=== PATIENT | female | born 1990 | race Caucasian/White ===

== ENCOUNTER 2019-02-23 17:51 | Emergency (ER) | payer OTHER ==
[~2019-02-23] VITALS: Ht 160 cm; Wt 65.3 kg
[2019-02-23 17:53] VITALS: Ht 160 cm; Wt 65.3 kg
[2019-02-23 19:00] VITALS: BP 131/85
== END 2019-02-23 19:00 | disposition home or self-care (01) ==
LOC: ED 17:51
DX: S09.8XXA Other specified injuries of head, initial encounter (principal); W22.8XXA Striking against or struck by other objects, initial encounter; Y93.89 Activity, other specified; Y92.89 Other specified places as the place of occurrence of the external cause; Y99.8 Other external cause status